=== PATIENT | male | born 2000 | race Caucasian/White ===

== ENCOUNTER 2020-02-06 00:45 | Emergency (ER) | payer OTHER, SELFPAY ==
[~2020-02-06] VITALS: Ht 188 cm; Wt 70.0 kg
--- NOTE | 2020-02-06 00:57 | NUR ---
PT BIB [facility] FOR DRINKING TOO MUCH. PT LOCALIZES TO PAINFUL STIMULI AND ANSWERS QUESTIONS APPROPRIATELY. ANOx4 WHEN ROUSED. PT NAUSEATED AND VOMITTING. GIVEN 4MG ZOFRAN ENROUTE. PLACED ON BP/SPO2 MONITORING, VSS. WCTM.
--- NOTE | 2020-02-06 01:18 | NUR ---
PT LAYING IN GURNEY, EYES CLOSED, RESPIRATIONS EVEN AND BILATERAL, PT USING SPIT BAG, NAD, VSS, WCTM. PT MTF.
--- NOTE | 2020-02-06 02:30 | NUR ---
LATE ENTRY: PT GIVEN WARM BLANKETS FOR COMFORT. RESTING WITH EYES CLOSED. EVEN AND BILATERAL CHEST RISE AND FALL. NAD. CALL LIGHT ON LAP, FRIEND AT , [facility]. MTF.
--- NOTE | 2020-02-06 03:23 | NUR ---
PT CONDITION UNCHANGED, GIVEN WATER AND ASSISTED TO DRINK. PT BACK TO SLEEP AFTER DRINKING A FEW SIPS. NAD. VSS. WCTM. MTF.
--- NOTE | 2020-02-06 04:16 | NUR ---
pt resting in gurney, eyes closed, condition unchanged. NAD, VSS, WCTM. MTF.
[2020-02-06 04:55] VITALS: BP 107/60
--- NOTE | 2020-02-06 04:56 | NUR ---
Patient given discharge instructions and they have confirmed that they understand the instructions. Patient ambulatory with steady gait. NAD, VSS, P/W/D, NO BELONGINGS LEFT IN ROOM AT TIME OF DC. DENIES ADDITIONAL NEEDS OR QUESTIONS AT THIS TIME.
== END 2020-02-06 04:58 | disposition home or self-care (01) ==
LOC: ED 00:55
DX: F10.120 Alcohol abuse with intoxication, uncomplicated (principal); Y90.9 Presence of alcohol in blood, level not specified
CPT/HCPCS: 99285